=== PATIENT | female | born 1970 | race African-American/Black ===

== ENCOUNTER 2022-08-06 13:27 | Emergency (ER) | payer OTHER ==
[~2022-08-06] VITALS: Ht 172.7 cm; Wt 53.6 kg
[~2022-08-06 13:27] MED LIST: NOCURR
[2022-08-06] MEDS ORDERED: PANT-31 PO (13:46)
[2022-08-06] MEDS ORDERED: OLAN5TAB30 PO (13:46)
[2022-08-06] MEDS ORDERED: RISP2TAB76 PO (13:46)
[2022-08-06] MEDS ORDERED: SENN-187 PO (13:46)
[2022-08-06] MEDS ORDERED: PRAM0.258 PO (13:46)
[2022-08-06] MEDS ORDERED: FLUO10CA24 PO (13:46)
[2022-08-06] MEDS ORDERED: ONDA-104 PO (13:46)
[2022-08-06] MEDS ORDERED: METH-812 PO (13:46)
[2022-08-06] MEDS ORDERED: FOLI-130 PO (13:46)
[2022-08-06] MEDS ORDERED: LACO100 PO (13:46)
[2022-08-06] MEDS ORDERED: OXYC10TA48 PO (13:46)
[2022-08-06] MEDS ORDERED: KETOROLAC TROMETHAMINE 60 MG/2 ML VIAL IM ONE (15:15)
[2022-08-06] MEDS ORDERED: IBUP-1492 PO (17:14)
[2022-08-06 17:52] VITALS: BP 125/90
== END 2022-08-06 17:55 | disposition home or self-care (01) ==
LOC: EMS 14:53
DX: S92.354A Nondisplaced fracture of fifth metatarsal bone, right foot, initial encounter for closed fracture (principal); F17.210 Nicotine dependence, cigarettes, uncomplicated; F12.90 Cannabis use, unspecified, uncomplicated; W22.8XXA Striking against or struck by other objects, initial encounter; Y93.89 Activity, other specified; Y92.89 Other specified places as the place of occurrence of the external cause; Y99.8 Other external cause status
CPT/HCPCS: 99285; 29515; 73610; 73630; 96372; J1885; 99284